=== PATIENT | female | born 1980 | race Two or more races ===

== ENCOUNTER 2019-10-14 08:35 | Day surgery (SDC) | payer BC ==
[~2019-10-14 08:35] MED LIST: ceFAZolin 2 GM in Premix Bag 1 BAG IV ONE
[2019-10-14] MEDS: Lactated Ringers 1,000 ML IV SCH ×2 (09:15→20:19)
[2019-10-14] MEDS ORDERED: Sugammadex Sodium 200 MG/2 ML VIAL ONE (09:21)
[2019-10-14] MEDS ORDERED: Midazolam 1 MG/ML 2 ML SDV ONE (09:22)
[2019-10-14] MEDS ORDERED: fentaNYL 250 MCG/5 ML SDV ONE (09:23)
[2019-10-14] MEDS ORDERED: Dexamethasone 4 MG/ML 5 ML MDV ONE (09:25)
[2019-10-14] MEDS ORDERED: Ketorolac 30 MG/ML SDV ONE (09:25)
[2019-10-14] MEDS ORDERED: Rocuronium 100 MG/10 ML Syringe ONE (09:25)
[2019-10-14] MEDS ORDERED: Glycopyrrolate 0.2 MG/ML SDV ONE (09:25)
[2019-10-14] MEDS ORDERED: Lidocaine 2% 5 ML SDV ONE (09:25)
[2019-10-14] MEDS ORDERED: Ondansetron 4 MG/2 ML SDV ONE (09:25)
--- NOTE | 2019-10-14 09:57 | PCM.PREANE ---
Preanesthetic Assessment - Anesthesia/Transfusion/Family Hx Anesthesia History: Prior Anesthesia Without Reaction Family History of Anesthesia Reaction: No Transfusion History: No Prior Transfusion(s) - Review of Systems General: No Symptoms Pulmonary: No Symptoms Cardiovascular: No Symptoms Gastrointestinal: No Symptoms Neurological: Seizure (last in February) - Physical Assessment NPO Status Date: 10/14/19 NPO Status Time: 07:00 Vital Signs: Last Vital Signs Temp 96.8 F 10/14/19 08:59 Pulse 70 10/14/19 08:59 Resp 18 10/14/19 08:59 BP 110/53 L 10/14/19 08:59 Pulse Ox 100 10/14/19 08:59 Height: 5 ft 4.5 in Weight: 72.575 kg ASA Class: 2 Mental Status: Alert & Oriented x3 Airway Class: Mallampati = 2 Dentition: Reports: Bridge (maxillary central) ROM/Head Extension: Full Lungs: Clear to Auscultation, Normal Respiratory Effort Cardiovascular: Regular Rate, Regular Rhythm - Lab Values: Laboratory Last Values WBC 7.49 K/uL (4.0-11.0) 10/14/19 09:06 RBC 4.49 M/uL (4.30-5.90) 10/14/19 09:06 Hgb 11.6 g/dL (12.0-16.0) L 10/14/19 09:06 Hct 36.5 % (36.0-46.0) 10/14/19 09:06 MCV 81.3 fL (80.0-98.0) 10/14/19 09:06 MCH 25.8 pg (27.0-32.0) L 10/14/19 09:06 MCHC 31.8 g/dL (31.0-37.0) 10/14/19 09:06 RDW Std Deviation 46.5 fl (28.0-62.0) 10/14/19 09:06 RDW Coeff of Adrian 16 % (11.0-15.0) H 10/14/19 09:06 Plt Count 276 K/uL (150-400) 10/14/19 09:06 MPV 10.00 fL (7.40-12.00) 10/14/19 09:06 Nucleated RBC % 0.0 /100WBC 10/14/19 09:06 Nucleated RBCs # 0 K/uL 10/14/19 09:06 - Allergies Allergies/Adverse Reactions: Allergies Allergy/AdvReac Type Severity Reaction Status Date / Time No Known Allergies Allergy Verified 10/07/19 11:07 - Blood Blood Available: No - Anesthesia Plan Pre-Op Medication Ordered: None - Acknowledgements Anesthesia Type Planned: General Anesthesia Pt an Appropriate Candidate for the Planned Anesthesia: Yes Alternatives and Risks of Anesthesia Discussed w Pt/Guardian: Yes Pt/Guardian Understands and Agrees with Anesthesia Plan: Yes Additional Comments: PMH: seizure disorder, on Keppra, Vapes PLAN: get PreAnesthesia Questionnaire HEENT History: Reports: Other (See Below) Other HEENT History: wears glasses, has upper permanent dental bridge 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: Ectopic Musculoskeletal History: Reports: Fracture Other Musculoskeletal History: hx of fx ankle Neurological History: Reports: Seizure Other Neuro History: is Epileptic- las seizure was in March - Past Surgical History Head Surgeries/Procedures: Reports: None HEENT Surgical History: Reports: Tonsillectomy - SUBSTANCE USE Smoking Status *Q: Current Some Day Smoker Tobacco Use Within Last Twelve Months: Vaping Recreational Drug Use History: No - HOME MEDS Home Medications: Home Meds levETIRAcetam [Keppra] 500 mg PO BID 10/07/19 [History] - CURRENT (IN HOUSE) MEDS Current Meds: Current Medications Lactated Ringer's (Ringers, Lactated) 1,000 mls @ 100 mls/hr IV ASDIRECTED JALEN Last Admin: 10/14/19 09:15 Dose: 100 mls/hr Discontinued Medications Dexamethasone (Dexamethasone) Confirm Administered Dose 20 mg .ROUTE .STK-MED ONE Stop: 10/14/19 09:26 Fentanyl (Sublimaze) Confirm Administered Dose 250 mcg .ROUTE .STK-MED ONE Stop: 10/14/19 09:24 Glycopyrrolate (Robinul) Confirm Administered Dose 0.2 mg .ROUTE .STK-MED ONE Stop: 10/14/19 09:26 Cefazolin Sodium/Dextrose 2 gm (/ Premix) 50 mls @ 100 mls/hr IV ONETIME ONE Stop: 10/14/19 09:00 Ketorolac Tromethamine (Toradol) Confirm Administered Dose 30 mg .ROUTE .STK- MED ONE Stop: 10/14/19 09:26 Lidocaine (Xylocaine-Mpf 2%) Confirm Administered Dose 5 ml .ROUTE .STK-MED ONE Stop: 10/14/19 09:26 Midazolam HCl (Versed 1 Mg/Ml) Confirm Administered Dose 2 mg .ROUTE .STK-MED ONE Stop: 10/14/19 09:23 Ondansetron HCl (Zofran) Confirm Administered Dose 4 mg .ROUTE .STK-MED ONE Stop: 10/14/19 09:26 Rocuronium [place] (Zemuron) Confirm Administered Dose 100 mg .ROUTE .STK-MED ONE Stop: 10/14/19 09:26 Sugammadex Sodium (Bridion) Confirm Administered Dose 200 mg .ROUTE .STK-MED ONE Stop: 10/14/19 09:22
[2019-10-14 09:59] LABS: BLOOD UREA NITROGEN,BUN 15 mg/dL (7.0-18.0); CARBON DIOXIDE,CO2 26.3 mmol/L (21.0-32.0); CHLORIDE,CL 105 mmol/L (98-107); GLUCOSE RANDOM 96 mg/dL (74-106); POTASSIUM,K 4.3 mmol/L (3.5-5.1); SODIUM,NA 137 mmol/L (136-145)
[2019-10-14] MEDS ORDERED: Desflurane 240 ML Bottle ONE (10:13)
[2019-10-14] MEDS ORDERED: Methylene Blue 50 MG/10 ML Ampule ONE (10:53)
[2019-10-14] MEDS ORDERED: Vasopressin 20 Units/1 ML MDV ONE (10:53)
[2019-10-14] MEDS ORDERED: Sodium Chloride 0.9% 20 ML ONE (11:37)
[2019-10-14] MEDS ORDERED: ceFAZolin 1 GM Vial ONE (11:37)
[2019-10-14] MEDS ORDERED: Octyl 2-Cyanoacrylate 1 Tube ONE (12:41)
[2019-10-14] MEDS ORDERED: fentaNYL 100 MCG/2 ML SDV ONE (12:54)
[2019-10-14] MEDS ORDERED: 50% Dextrose in Water 50 ML Syringe IVPUSH PRN (13:37)
[2019-10-14] MEDS ORDERED: Naloxone 0.4 MG/ML Syringe IVPUSH PRN ×2 (13:37→13:49)
[2019-10-14] MEDS ORDERED: EPINEPHrine 1:10,000 1 MG/10 ML Syringe IVPUSH PRN (13:37)
[2019-10-14] MEDS ORDERED: Atropine 0.1 MG/ML 10 ML Syringe IVPUSH PRN ×2 (13:37)
[2019-10-14] MEDS ORDERED: Albuterol 0.083% 2.5 MG/3 ML Neb Soln NEB PRN (13:37)
[2019-10-14] MEDS ORDERED: Ondansetron 4 MG/2 ML SDV IVPUSH PRN ×2 (13:45→13:49)
[2019-10-14] MEDS ORDERED: Ibuprofen 800 MG Tab PO PRN (13:45)
[2019-10-14] MEDS ORDERED: Promethazine 25 MG/ML SDV IM PRN (13:45)
[2019-10-14] MEDS ORDERED: diphenhydrAMINE 25 MG Cap PO PRN (13:49)
[2019-10-14] MEDS ORDERED: Tranexamic Acid 1,000 MG in Sodium Chloride 0.9% 100 ML IV ONE (13:49)
[2019-10-14] MEDS ORDERED: diphenhydrAMINE 50 MG/ML SDV IVPUSH PRN (13:49)
[2019-10-14] MEDS: fentaNYL 100 MCG/2 ML SDV IVPUSH PRN ×2 (13:51→14:08)
--- NOTE | 2019-10-14 13:54 | PCM.OPNOTE ---
- General Post-Op/Procedure Note Date of Surgery/Procedure: 10/14/19 Operative Procedure(s): Abdominal myomectomy Findings: Enlarged uterus with 10cm submucosal posterior uterine fibroid Multiple small subserosal and pedunculated fibroids Normal bilateral tubes and ovaries Bilateral tubal patency Endometriotic lesions on left ovary and bowel Pre Op Diagnosis: Uterine leiomyoma. Heavy menses. Dysmenorrea Post-Op Diagnosis: Uterine leiomyoma. Heavy menses. Dysmenorrea Anesthesia Technique: General ET Tube Primary Surgeon: Karuna Woodard Janitor Caretaker: Lula Mccormack Pathology: Leiomyoma, 9 Fluid Replacement, Intraop: 1,200 Output, Urine Amount: 700 EBL in mLs: 100 Complications: None
[2019-10-14] MEDS ORDERED: HYDROmorphone 2 MG/ML Syringe IVPUSH ONE (14:00)
[2019-10-14] MEDS: Morphine PF 30 MG/30 ML PCA Vial IV SCH (14:20)
--- NOTE | 2019-10-14 14:50 | PCM.POSTAN ---
POST ANESTHESIA ASSESSMENT - MENTAL STATUS Mental Status: Alert, Oriented - VITAL SIGNS Vital Signs: Last Vital Signs Temp 97.9 F 10/14/19 13:42 Pulse 67 10/14/19 14:47 Resp 13 10/14/19 14:47 BP 97/50 L 10/14/19 14:47 Pulse Ox 96 10/14/19 14:47 - RESPIRATORY Respiratory Status: Respiratory Rate WNL, Airway Patent, O2 Saturation Stable - CARDIOVASCULAR CV Status: Pulse Rate WNL, Blood Pressure Stable - GASTROINTESTINAL GI Status: No Symptoms - POST OP HYDRATION Hydration Status: Adequate & Stable
--- NOTE | 2019-10-14 17:37 | PCM.SN ---
- Free Text/Narrative Note: Patient doing well post-operatively. Tolerating oral intake without nausea. Pain controlled with SURVEY RESEARCH TEACHER. Has not ambulated or voided yet. Vital signs stable. Will sign out to Dr. Mccormack for any care needed overnight.
--- NOTE | 2019-10-14 17:47 | PCM48HPAN ---
Post Anesthesia Note - EVALUATION WITHIN 48HRS OF ANESTHETIC Vital Signs in Normal Range: Yes Patient Participated in Evaluation: Yes Respiratory Function Stable: Yes Airway Patent: Yes Cardiovascular Function Stable: Yes Hydration Status Stable: Yes Pain Control Satisfactory: Yes Nausea and Vomiting Control Satisfactory: Yes Mental Status Recovered: Yes Vital Signs: Last Vital Signs Temp 96.8 F 10/14/19 17:15 Pulse 67 10/14/19 17:15 Resp 14 10/14/19 17:15 BP 100/57 L 10/14/19 17:15 Pulse Ox 99 10/14/19 17:15
[2019-10-14] MEDS: levETIRAcetam 500 MG Tab PO SCH (20:18)
[2019-10-14] MEDS: Gabapentin 300 MG Cap PO SCH (20:21)
--- NOTE | 2019-10-14 21:33 | OR ---
SURGEON: Karuna Woodard MD DATE OF PROCEDURE: 10/14/2019 PREOPERATIVE DIAGNOSES: 1. 39-year-old, G1, P0-0-1-0. 2. Heavy menstruation. 3. Dysmenorrhea. 4. Uterine leiomyoma. POSTOPERATIVE DIAGNOSES: 1. 39-year-old, G1, P0-0-1-0. 2. Heavy menstruation. 3. Dysmenorrhea. 4. Uterine leiomyoma. PROCEDURE PERFORMED: Abdominal myomectomy. PRIMARY SURGEON: Dr. Karuna Woodard. TRANSIT MIXER OPERATOR: Dr. Lula Mccormack. ANESTHESIA: General. ESTIMATED BLOOD LOSS: 100 mL. URINE OUTPUT: 700 mL of clear yellow urine in Dominguez catheter. FLUIDS: 1200 mL of LR during the procedure. SPECIMEN: Nine uterine fibroids. COMPLICATIONS: None. FINDINGS: The patient has an enlarged approximately 14-week size uterus that is mobile and anteverted. The ovaries appeared normal, bilateral fallopian tubes appeared normal and are patent at the end of the procedure. There were multiple subcentimeter pedunculated fibroids. Approximately two 2 cm fibroids. A large 10 cm submucosal posterior uterine fibroid. PROCEDURE IN DETAIL: The patient was taken to operating room where anesthesia was obtained. She was placed in the dorsal lithotomy position with legs in [place] stirrups. She was prepared and draped in normal sterile fashion. A Graves' speculum was inserted into the vagina. The anterior lip of the cervix was grasped with a single-tooth tenaculum. The cervix was sequentially dilated to a size 8 with Hegar dilators. The uterus was sounded to 9cm. A HUMI uterine manipulator was placed into the uterus, and the intrauterine balloon filled with 5cc air. 3cc of methylene blue mixed in normal saline was infiltrated into the uterus to facilitate identification of the endometrium. The speculum was removed from the vagina. A Pfannenstiel skin incision was made with a scalpel and carried through to the underlying layer of fascia with the Bovie. The fascia was incised in the midline with the Bovie and the incision extended laterally with the Bovie. The superior aspect of the fascial incision was grasped Daren clamps, elevated, and the underlying rectus muscle dissected up bluntly and with Bovie. In a similar fashion, the inferior aspect of the fascial incision was grasped with Daren clamps, elevated, and underlying rectus muscles dissected off bluntly with the Bovie. The rectus muscles were in the midline. Two hemostats were used to grasp the peritoneum which was then entered sharply with Metzenbaum scissors. This incision was extended using the Bovie and manual traction. A large Romario retractor was placed into the abdomen. The uterus was grasped and elevated from the abdomen. The fibroid was then injected with vasopressin, 20 units mixed in 100 mL of normal saline along with serosal surface. The needle tip cautery was used to cut a vertical incision along the fundus until the fibroid capsule was seen. Blunt dissection around the fibroid was used to further separate the fibroid from the surrounding serosa and myometrium. The fibroid was grasped with a Rupinder clamp for additional traction. The Bovie and blunt dissection were used to completely separate the fibroid from the myometrium. At this time, it was noted that the endometrium had been inadvertently entered during dissection. A large fibroid was handed off to the awaiting nurse. Two smaller 2 cm subserosal fibroids were excised using the Bovie and manual traction. Six additional subcentimeter serosal fibroids were excised using the Bovie and Allis clamp. The endometrium was repaired with a running stitch of 2-0 chromic suture. Methylene blue was infiltrated into the HUMI uterine manipulator, and endometrial repair was confirmed. Four interrupted layers of 2-0 Vicryl were used to close the myometrium in a running locked fashion. The serosa was then closed with 2-0 Vicryl in a running baseball stitch in two separate layers. The uterus was hemostatic after closure. Methylene blue was infiltrated into the HUMI uterine manipulator, with confirmed bilateral tubal patency. A piece of Interceed was placed over the incision and dampened with normal saline to assist with prevention of adhesions. The pelvis was irrigated. The uterus was then returned to the abdomen. The rectus muscles and peritoneum were reapproximated with a running stitch of 2 - 0 Vicryl suture. The fascia was then closed with 0 Vicryl in a running fashion. The subcutaneous tissue and Mo's fascia were closed with a running stitch of 3-0 Vicryl. The skin was closed with 4-0 Monocryl in a subcuticular manner. Steri-Strips and a pressure bandage were placed over the incision. The speculum was reinserted into the vagina. The intrauterine balloon was deflated and the HUMI manipulator removed. Hemostasis was noted. The speculum was removed. The patient was awakened from general anesthesia and taken to recovery room in stable condition. She tolerated the procedure well. All sponge, lap, needle counts were correct. [id number] / MODL /[id number] MTDD
[2019-10-15] MEDS: Morphine PF 30 MG/30 ML PCA Vial IV SCH (01:51)
[2019-10-15 06:17] LABS: BLOOD UREA NITROGEN,BUN 8 mg/dL (7.0-18.0); CARBON DIOXIDE,CO2 25.1 mmol/L (21.0-32.0); CHLORIDE,CL 104 mmol/L (98-107); GLUCOSE RANDOM 104 mg/dL (74-106); POTASSIUM,K 3.5 mmol/L (3.5-5.1); SODIUM,NA 138 mmol/L (136-145)
--- NOTE | 2019-10-15 08:43 | PCM.PN ---
- General Info Date of Service: 10/15/19 Admission Dx/Problem (Free Text): Patient doing well. Has voided. Tolerating oral intake without nausea. Has ambulated in room. Complains of pain, controlled with COORDINATOR OF LIBRARY SERVICES. Denies fevers/chills , chest pain, shortness of breath. Functional Status: Reports: Pain Controlled, Tolerating Diet, Urinating - Review of Systems General: Reports: No Symptoms HEENT: Reports: No Symptoms Pulmonary: Reports: No Symptoms Cardiovascular: Reports: No Symptoms Gastrointestinal: Reports: No Symptoms Genitourinary: Reports: No Symptoms Musculoskeletal: Reports: No Symptoms Skin: Reports: No Symptoms Neurological: Reports: No Symptoms Psychiatric: Reports: No Symptoms - Patient Data Vitals - Most Recent: Last Vital Signs Temp 36.8 C 10/15/19 07:36 Pulse 76 10/15/19 07:36 Resp 14 10/15/19 07:36 BP 93/50 L 10/15/19 07:36 Pulse Ox 98 10/15/19 07:36 Weight - Most Recent: 72.575 kg I&O - Last 24 Hours: Intake & Output 10/14/19 10/15/19 10/15/19 22:59 06:59 14:59 Intake Total 534 1655 Output Total 100 1750 Balance 434 -95 Lab Results Last 24 Hours: Laboratory Results - last 24 hr 10/14/19 10/14/19 10/14/19 Range/Units 09:06 09:06 09:06 WBC 7.49 (4.0-11.0) K/uL RBC 4.49 (4.30-5.90) M/uL Hgb 11.6 L (12.0-16.0) g/dL Hct 36.5 (36.0-46.0) % MCV 81.3 (80.0-98.0) fL MCH 25.8 L (27.0-32.0) pg MCHC 31.8 (31.0-37.0) g/dL RDW Std Deviation 46.5 (28.0-62.0) fl RDW Coeff of Adrian 16 H (11.0-15.0) % Plt Count 276 (150-400) K/uL MPV 10.00 (7.40-12.00) fL Neut % (Auto) (48.0-80.0) % Lymph % (Auto) (16.0-40.0) % [place] % (Auto) (0.0-15.0) % Eos % (Auto) (0.0-7.0) % Baso % (Auto) (0.0-1.5) % Neut # (Auto) (1.4-5.7) K/uL Lymph # (Auto) (0.6-2.4) K/uL [place] # (Auto) (0.0-0.8) K/uL Eos # (Auto) (0.0-0.7) K/uL Baso # (Auto) (0.0-0.1) K/uL Nucleated RBC % 0.0 /100WBC Nucleated RBCs # 0 K/uL Sodium 137 (136-145) mmol/L Potassium 4.3 (3.5-5.1) mmol/L Chloride 105 (98-107) mmol/L Carbon Dioxide 26.3 (21.0-32.0) mmol/L BUN 15 (7.0-18.0) mg/dL Creatinine 0.6 (0.6-1.0) mg/dL Est Cr Clr Drug Dosing 109.89 mL/min Estimated GFR (MDRD) > 60.0 ml/min Glucose 96 (74-106) mg/dL Calcium 8.5 (8.5-10.1) mg/dL HCG, Qual NEGATIVE (NEG) Blood Type Antibody Screen 10/14/19 10/15/19 10/15/19 Range/Units 09:06 05:15 05:15 WBC 13.92 H (4.0-11.0) K/uL RBC 3.65 L (4.30-5.90) M/uL Hgb 9.5 L (12.0-16.0) g/dL Hct 29.5 L (36.0-46.0) % MCV 80.8 (80.0-98.0) fL MCH 26.0 L (27.0-32.0) pg MCHC 32.2 (31.0-37.0) g/dL RDW Std Deviation 46.0 (28.0-62.0) fl RDW Coeff of Adrian 16 H (11.0-15.0) % Plt Count 237 (150-400) K/uL MPV 9.90 (7.40-12.00) fL Neut % (Auto) 77.3 (48.0-80.0) % Lymph % (Auto) 11.6 L (16.0-40.0) % [place] % (Auto) 10.6 (0.0-15.0) % Eos % (Auto) 0.4 (0.0-7.0) % Baso % (Auto) 0.1 (0.0-1.5) % Neut # (Auto) 10.8 H (1.4-5.7) K/uL Lymph # (Auto) 1.6 (0.6-2.4) K/uL [place] # (Auto) 1.5 H (0.0-0.8) K/uL Eos # (Auto) 0.1 (0.0-0.7) K/uL Baso # (Auto) 0.0 (0.0-0.1) K/uL Nucleated RBC % 0.0 /100WBC Nucleated RBCs # 0 K/uL Sodium 138 (136-145) mmol/L Potassium 3.5 (3.5-5.1) mmol/L Chloride 104 (98-107) mmol/L Carbon Dioxide 25.1 (21.0-32.0) mmol/L BUN 8 (7.0-18.0) mg/dL Creatinine 0.7 (0.6-1.0) mg/dL Est Cr Clr Drug Dosing 94.19 mL/min Estimated GFR (MDRD) > 60.0 ml/min Glucose 104 (74-106) mg/dL Calcium 7.8 L (8.5-10.1) mg/dL HCG, Qual (NEG) Blood Type O POSITIVE Antibody Screen NEGATIVE Med Orders - Current: Current Medications Diphenhydramine HCl (Benadryl) 25 mg IVPUSH Q6H PRN PRN Reason: Itching Diphenhydramine HCl (Benadryl) 25 mg PO Q6H PRN PRN Reason: Itching Gabapentin (Neurontin) 300 mg PO BID [facility] Last Admin: 10/14/19 20:21 Dose: Not Given Lactated Ringer's (Ringers, Lactated) 1,000 mls @ 100 mls/hr IV ASDIRECTED JALEN Last Admin: 10/14/19 20:19 Dose: 100 mls/hr Ibuprofen (Motrin) 800 mg PO Q8H PRN PRN Reason: Pain (mild 1-3) Levetiracetam (Keppra) 500 mg PO BID JALEN Last Admin: 10/14/19 20:18 Dose: 500 mg Naloxone HCl (Narcan) 0.04 mg IVPUSH Q3M PRN PRN Reason: Respiratory Depression Ondansetron HCl (Zofran) 4 mg IVPUSH Q6H PRN PRN Reason: Nausea/Vomiting Promethazine HCl (Phenergan) 25 mg IM Q6H PRN PRN Reason: Nausea/Vomiting Discontinued Medications Albuterol (Proventil Neb Soln) 2.5 mg NEB ONETIME PRN PRN Reason: Wheezing Atropine Sulfate (Atropine 0.1 Mg/Ml) 0.5 mg IVPUSH ASDIRECTED PRN PRN Reason: Hypo-perfusion Atropine Sulfate (Atropine 0.1 Mg/Ml) 1 mg IVPUSH ASDIRECTED PRN PRN Reason: Hypo-Perfusion Cefazolin Sodium (Ancef) Confirm Administered Dose 2 gm .ROUTE .STK-MED ONE Stop: 10/14/19 11:38 Desflurane (Suprane) Confirm Administered Dose 240 ml .ROUTE .STK-MED ONE Stop: 10/14/19 10:14 Dexamethasone (Dexamethasone) Confirm Administered Dose 20 mg .ROUTE .STK-MED ONE Stop: 10/14/19 09:26 Dextrose/Water (Dextrose 50% In Water) 50 ml IVPUSH ASDIRECTED PRN PRN Reason: Hypoglycemia Epinephrine HCl (Epinephrine 1:10,000) 1 mg IVPUSH ASDIRECTED PRN PRN Reason: ACLS Guidelines Fentanyl (Sublimaze) Confirm Administered Dose 250 mcg .ROUTE .STK-MED ONE Stop: 10/14/19 09:24 Fentanyl (Sublimaze) Confirm Administered Dose 100 mcg .ROUTE .STK-MED ONE Stop: 10/14/19 12:55 Fentanyl (Sublimaze) 50 - 100 mcg IVPUSH Q5M PRN PRN Reason: Pain Last Admin: 10/14/19 14:08 Dose: 50 mcg Glycopyrrolate (Robinul) Confirm Administered Dose 0.2 mg .ROUTE .STK-MED ONE Stop: 10/14/19 09:26 Hydromorphone HCl (Dilaudid) 0.5 mg IVPUSH ONETIME ONE Stop: 10/14/19 14:01 Last Admin: 10/14/19 14:28 Dose: 0.5 mg Cefazolin Sodium/Dextrose 2 gm (/ Premix) 50 mls @ 100 mls/hr IV ONETIME ONE Stop: 10/14/19 09:00 Last Admin: 10/14/19 14:33 Dose: Not Given Sodium Chloride (Normal Saline) Confirm Administered Dose 20 mls @ as directed .ROUTE .STK-MED ONE Stop: 10/14/19 11:38 Tranexamic Acid 1,000 mg/ (Sodium Chloride) 110 mls @ 600 mls/hr IV ONETIME ONE Stop: 10/14/19 13:59 Last Admin: 10/14/19 15:22 Dose: Not Given Ketorolac Tromethamine (Toradol) Confirm Administered Dose 30 mg .ROUTE .STK- MED ONE Stop: 10/14/19 09:26 Lidocaine (Xylocaine-Mpf 2%) Confirm Administered Dose 5 ml .ROUTE .STK-MED ONE Stop: 10/14/19 09:26 Methylene Blue (Provayblue) Confirm Administered Dose 50 mg .ROUTE .STK-MED ONE Stop: 10/14/19 10:54 Midazolam HCl (Versed 1 Mg/Ml) Confirm Administered Dose 2 mg .ROUTE .STK-MED ONE Stop: 10/14/19 09:23 Morphine Sulfate (Morphine [employer] 30 Mg In 30 Ml) 0 mg IV ASDIRECTED JALEN; Protocol Last Admin: 10/15/19 01:51 Dose: 30 mg Naloxone HCl (Narcan) 0.1 mg IVPUSH ASDIRECTED PRN PRN Reason: Respiratory Depression Octyl Cyanoacrylate (Dermabond Advance) Confirm Administered Dose 1 applic .ROUTE .STK-MED ONE Stop: 10/14/19 12:42 Ondansetron HCl (Zofran) Confirm Administered Dose 4 mg .ROUTE .STK-MED ONE Stop: 10/14/19 09:26 Ondansetron HCl (Zofran) 4 mg IVPUSH Q6H PRN PRN Reason: Nausea/Vomiting Rocuronium [place] (Zemuron) Confirm Administered Dose 100 mg .ROUTE .STK-MED ONE Stop: 10/14/19 09:26 Sugammadex Sodium (Bridion) Confirm Administered Dose 200 mg .ROUTE .STK-MED ONE Stop: 10/14/19 09:22 Vasopressin (Vasopressin) Confirm Administered Dose 20 units .ROUTE .STK-MED ONE Stop: 10/14/19 10:54 - Exam General: Alert, Oriented Neck: Supple Lungs: Clear to Auscultation, Normal Respiratory Effort Cardiovascular: Regular Rate, Regular Rhythm GI/Abdominal Exam: Soft, No Distention, Tender (appropriate tenderness to palpation) Extremities: Normal Inspection Skin: Warm, Dry, Intact Wound/Incisions: Dressing Dry and Intact Neurological: No New Focal Deficit Psy/Mental Status: Alert, Normal Affect, Normal Mood Sepsis Event Note - Evaluation Sepsis Screening Result: No Definite Risk - Focused Exam Vital Signs: Vital Signs Temp Pulse Resp BP Pulse Ox 10/15/19 07:36 36.8 C 76 14 93/50 L 98 10/15/19 04:00 37.1 C 66 16 100/53 L 96 10/14/19 23:39 36.3 C 67 16 103/56 L 100 Date Exam was Performed: 10/15/19 Time Exam was Performed: 08:40 - Problem List & Annotations (1) S/P myomectomy SNOMED Code(s): 729621263, 435829278 Code(s): Z98.890 - OTHER SPECIFIED POSTPROCEDURAL STATES Status: Acute Current Visit: Yes (2) Abnormal uterine bleeding due to leiomyoma of uterus SNOMED Code(s): 41109995106510726 Code(s): N93.9 - ABNORMAL UTERINE AND VAGINAL BLEEDING, UNSPECIFIED; D25.9 - LEIOMYOMA OF UTERUS, UNSPECIFIED Status: Acute Current Visit: Yes - Problem List Review Problem List Initiated/Reviewed/Updated: Yes - My Orders Last 24 Hours: My Active Orders 10/14/19 08:30 Sequential Compression Device [OM.PC] Routine 10/14/19 13:45 Patient Status [ADT] Routine Notify Provider Intake and Out [RC] ASDIRECTED Notify Provider Vital Signs [RC] ASDIRECTED Oxygen Therapy [RC] ASDIRECTED RT Incentive Spirometry [RC] Q2HWA Up With Assistance [RC] PER UNIT ROUTINE Up ad Janett [RC] PER UNIT ROUTINE Ibuprofen [Motrin] 800 mg PO Q8H PRN Promethazine [Phenergan] 25 mg IM Q6H PRN Peripheral IV Discontinue [OM.PC] Routine Sequential Compression Device [OM.PC] Per Unit Routine Resuscitation Status Routine 10/14/19 13:46 Antiembolic Devices [RC] PER UNIT ROUTINE Intake and Output [RC] Q12H 10/14/19 13:47 Abdominal Binder [OM.PC] Per Unit Routine 10/14/19 13:49 Naloxone [Narcan] 0.04 mg IVPUSH Q3M PRN Ondansetron [Zofran] 4 mg IVPUSH Q6H PRN diphenhydrAMINE [Benadryl] 25 mg IVPUSH Q6H PRN diphenhydrAMINE [Benadryl] 25 mg PO Q6H PRN 10/14/19 13:50 Communication Order [RC] PER UNIT ROUTINE COORDINATOR OF LIBRARY SERVICES Record [RC] Q4H Vital Signs [RC] Q4H 10/14/19 21:00 Gabapentin [Neurontin] 300 mg PO BID levETIRAcetam [Keppra] 500 mg PO BID 10/14/19 Dinner Regular Diet [DIET] 10/15/19 08:38 Acetaminophen/oxyCODONE [Percocet 325-5 MG] 1 tab PO Q4H PRN - Assessment Assessment:: 39yo POD#1 s/p abdominal myomectomy for heavy menstruation and dysmenorrhea - Plan Plan:: Continue to encourage ambulation. D/C COORDINATOR OF LIBRARY SERVICES, begin oral percocet for pain control. Dispo: If pain controlled with oral pain medication and able to ambulate/ tolerate oral intake, discharge home this evening.
[2019-10-15] MEDS: levETIRAcetam 500 MG Tab PO SCH (09:21)
[2019-10-15] MEDS: Gabapentin 300 MG Cap PO SCH (09:21)
[2019-10-15] MEDS: Acetaminophen/oxyCODONE 325-5 MG Tab PO PRN ×2 (09:21→13:32)
== END 2019-10-15 17:30 | disposition home or self-care (01) ==
LOC: MW.SDS 08:35 → EDSTATUS 10:15 → MW.MS 14:03 → MW.SDS 10-15 17:30
PROVIDERS: ATTEND Obstetrics & Gynecology
DX: D25.2 Subserosal leiomyoma of uterus (principal); G40.909 Epilepsy, unspecified, not intractable, without status epilepticus; F17.290 Nicotine dependence, other tobacco product, uncomplicated; Z79.899 Other long term (current) drug therapy
CPT/HCPCS: 36415; 58146; 80048; 84703; 85025; 85027; 86850; 86900; 86901; A9270; C1765; J0690; J1100; J1170; J2001; J2250; J2274; J2405; J3010; J3490; J7120; 88307; J1885